=== PATIENT | female | born 1975 | race Caucasian/White ===

== ENCOUNTER → 2020-04-06 | Outpatient (CLI) | payer BC ==
[~2020-04-06] MED LIST: BUPR1FIL3 SL; BUPR1PAT2 TD; CALC-404 PO; CEFP200T2 PO; CPR500T PO; DCS100C PO; DESV100T PO; FERR-57 PO; IBP600T1 PO; LEVO125T6 PO; LEVO300T2 PO; LEVO75TA57 PO; LVT.15T PO; M PO; METR500T PO; MILK OF MAGNESIA PO; MULTIVIT PO; MVTH120B; NASCOBAL; NF-METANX PO; OXYC-12 PO; POLY17PO23 GT; PREG150C PO; PREN1TAB39 PO; QTP100T PO
--- NOTE | 2020-04-07 08:41 | Diagnostic Imaging Report ---
INDICATION: Routine screening. COMPARISON: No prior mammograms are available for comparison. This is a baseline study. TECHNIQUE: 2D and 3D bilateral screening mammography was performed with CAD. FINDINGS: Scattered fibroglandular densities are identified bilaterally. There is a nodular density in the retroareolar right breast, best seen on the CC view. Additional views are recommended. This may be superiorly located on the MLO view. The left breast is unremarkable. No malignant appearing microcalcifications are seen. The axillae are unremarkable. IMPRESSION: Right breast density. Additional views are recommended for further evaluation. ACR BI-RADS Category 0: Incomplete. (Needs additional imaging evaluation). Result letter will be mailed to the patient. Note: At least 10% of breast cancer is not imaged by mammography. Dictated by: Dictated on workstation # [id number]
== END ==
LOC: RAD 14:50
PROVIDERS: ATTEND Nurse Practitioner Family
DX: Z12.31 Encounter for screening mammogram for malignant neoplasm of breast (principal); R92.8 Other abnormal and inconclusive findings on diagnostic imaging of breast
CPT/HCPCS: 77063; 77067

== ENCOUNTER → 2020-04-14 | Outpatient (CLI) | payer BC ==
--- NOTE | 2020-04-14 15:41 | Diagnostic Imaging Report ---
EXAM: Ultrasound right breast, limited. INDICATION: Abnormal mammogram The baseline screening mammogram performed on 04/06/2020 suggested a nodular density in the retroareolar region of the right breast. That finding was not well visualized on the diagnostic mammogram performed earlier today in conjunction with this study. On this exam, there is no discrete solid or cystic mass in the retroareolar region of the right breast. The nodular density seen on the baseline screening mammogram was most likely secondary to fibroglandular tissue. Even so, it may prove worthwhile to have a short-term (6 month) follow-up mammogram of the right breast for continued evaluation. IMPRESSION: 1. There is no evidence for malignancy. Recommendations as above. ACR category 3. ACR BI-RADS Category 3: Probably benign findings. Result letter will be mailed to the patient. Note: At least 10% of breast cancer is not imaged by mammography. Dictated by: Dictated on workstation # [id number]
--- NOTE | 2020-04-14 19:46 | Diagnostic Imaging Report ---
INDICATION: Screening. EXAMINATION: Unilateral right breast digital diagnostic mammogram with CAD. 3D tomographic images were obtained and reviewed. The current study was also evaluated with a Computer Aided Detection (CAD) system. FINDINGS: The recent baseline screening mammogram performed on 04/06/2020 noted a nodular density in the retroareolar region of the right breast. This was only well visualized on the CC view. On this exam, that finding is again noted although it is not as conspicuous. This finding could be secondary to fibroglandular tissue. The possibility that there is an underlying abnormality should still certainly be considered. Ultrasound would be recommended for further study. IMPRESSION: Ultrasound would be recommended for further evaluation of the right breast. ACR BI-RADS Category 0: Incomplete. (Needs additional imaging evaluation). Result letter will be mailed to the patient. Note: At least 10% of breast cancer is not imaged by mammography. Dictated by: Dictated on workstation # [id number]
== END ==
LOC: RAD 13:15
PROVIDERS: ATTEND Nurse Practitioner Family
DX: R92.8 Other abnormal and inconclusive findings on diagnostic imaging of breast (principal)
CPT/HCPCS: 76642; 77065; G0279

== ENCOUNTER → 2020-05-13 | Outpatient (CLI) | payer BC ==
[~2020-05-13] MED LIST changes: +CATHETER FLUSH 10 ML SYR IV PRN; +HOLD METFORMIN - RECEIVED CONTRAST 20 ML VIAL IV SCH; +IOHEXOL 350 MG/ML 100 ML (OMNIPAQUE 350) VIAL IV ONE; +NS 100 ML (IVPB) BAG IV ONE
--- NOTE | 2020-05-13 10:10 | Diagnostic Imaging Report ---
PROCEDURE: CT neck soft tissue with contrast. TECHNIQUE: Multiple contiguous axial images were obtained through the neck after the administration of contrast. Auto Exposure Controls were utilized during the CT exam to meet ALARA standards for radiation dose reduction. INDICATION: Dysphasia. Patient has had prior thyroidectomy. No prior studies are available for comparison. The visualized paranasal sinuses are clear. Posterior nasopharynx and oropharynx are unremarkable. Parapharyngeal fat planes are preserved. No definite retropharyngeal fluid collection is identified. No peritonsillar fluid collection is identified. The epiglottis and larynx appear unremarkable. Thyroid appears to be surgically absent. No recurrent mass is detected. Bilateral submandibular and parotid glands appear to be symmetric bilaterally. Normal-sized lymph nodes in the jugulodigastric and posterior cervical space are noted. No definite lymphadenopathy is seen. IMPRESSION: Essentially unremarkable CT soft tissue neck study. No acute features detected. Dictated by: Dictated on workstation # [id number]
== END ==
LOC: RAD 07:45
PROVIDERS: ATTEND Pediatrics
DX: R13.19 Other dysphagia (principal); Z90.89 Acquired absence of other organs
CPT/HCPCS: 70491

== ENCOUNTER → 2020-11-18 | Outpatient (CLI) | payer BC ==
[~2020-11-18] MED LIST changes: -CATHETER FLUSH 10 ML SYR IV PRN; -HOLD METFORMIN - RECEIVED CONTRAST 20 ML VIAL IV SCH; -IOHEXOL 350 MG/ML 100 ML (OMNIPAQUE 350) VIAL IV ONE; -NS 100 ML (IVPB) BAG IV ONE; +RT-ALBUTEROL SULF 2.5 MG/3 ML PRE-MIX VIAL INH ONE
== END ==
LOC: RT 08:00
PROVIDERS: ATTEND Nurse Practitioner Family
DX: R06.02 Shortness of breath (principal)
CPT/HCPCS: 94060; 94726; 94729

== ENCOUNTER → 2021-08-31 | Outpatient (CLI) | payer BC ==
[~2021-08-31] MED LIST changes: -RT-ALBUTEROL SULF 2.5 MG/3 ML PRE-MIX VIAL INH ONE
== END ==
LOC: LABNPT 08:33
PROVIDERS: ATTEND Family Medicine
DX: Z20.822 Contact with and (suspected) exposure to COVID-19 (principal)
CPT/HCPCS: 87636

== ENCOUNTER → 2021-11-27 | Outpatient (CLI) | payer BC ==
--- NOTE | 2021-11-28 09:32 | Diagnostic Imaging Report ---
INDICATION: Routine screening. COMPARISON: 04/06/2020. TECHNIQUE: 2D and 3D bilateral screening mammography was performed with CAD. FINDINGS: Scattered fibroglandular densities are identified bilaterally. The parenchymal pattern is stable. No mass or malignant appearing microcalcifications are seen. The axillae are unremarkable. IMPRESSION: No mammographic features suspicious for malignancy are identified. ACR BI-RADS Category 1: Negative. Result letter will be mailed to the patient. Note: At least 10% of breast cancer is not imaged by mammography. Dictated by: Dictated on workstation # [id number]
== END ==
LOC: RAD 15:15
PROVIDERS: ATTEND Pediatrics
DX: Z12.31 Encounter for screening mammogram for malignant neoplasm of breast (principal)
CPT/HCPCS: 77063; 77067